=== PATIENT | female | born 1985 | race Caucasian/White ===

== ENCOUNTER 2025-06-30 17:52 | Emergency (ER) | payer BC, SELFPAY ==
[2025-06-30 18:01] VITALS: BP 181/97
--- NOTE | 2025-06-30 20:08 | ED.GENMED ---
History of Present Illness
General
Chief Complaint: Skin Problem
Time Seen by Provider: 06/30/25 20:08
History of Present Illness
History of Present Illness:
FOCUSED PAST MEDICAL HISTORY
- No significant past medical history
REVIEW OF OLD RECORDS
- No old records available for review in [facility]
Note:
CHIEF COMPLAINT(S)
New rash and persistent redness on the skin after recent history of poison rafael exposure.
HISTORY OF PRESENT ILLNESS
The patient is a 39-year-old female with a recent history of extensive poison rafael exposure starting on June 02. She completed a 21-day course of oral prednisone and a topical corticosteroid, Clobetasol, which ended last Sunday. A follow-up
with a link trainer teacher on Sunday revealed persistent redness and dryness on the leg, for which a sample of an additional topical medication was provided for irritation. No formal prescription was obtained for this.
Today, the patient presents with a new rash on the left side of her body, characterized by smaller, itchy bumps that are distinct from the original poison rafael rash. The patient reports that her right leg, originally impacted by poison rafael, is now
very red and has a new circular area with redness and hot to touch. The rash is described as uncomfortable, with no associated pain but significant itching. The redness has been persistent, while the new itchy area has been waxing and waning
throughout the day.
The patient has taken two doses of cetirizine today, as advised during the initial prednisone treatment. She denies any respiratory symptoms, trouble breathing, or sensation of throat tightness. The patient expressed concern over the persistent
redness and new rash, prompting today�s visit.
REVIEW OF SYSTEMS
- Skin: Raised crusted red lesions on lower extremity, faint erythema on the left torso and left lower extremity, itchy small bumps on the right side.
- Respiratory: No difficulty breathing, no respiratory distress.
- General: Feeling uncomfortable due to skin symptoms.
PHYSICAL EXAM
General: Alert, no acute distress.
Skin: Crusted, raised red lesions on the right lower extremity; faint erythema on the left torso and left lower extremity; questionable very faint petechial rash, warm to touch, not typical of cellulitis.
Head: Normocephalic, atraumatic.
Neck: Supple, trachea midline.
Eye, Ear, Nose, Mouth, and Throat: Oral mucosa moist.
Cardiovascular: Normal peripheral perfusion, No edema.
Respiratory: Respirations are non-labored; clear and equal breath sounds.
Gastrointestinal: Abdomen nondistended.
Back: Normal range of motion, Normal alignment.
Musculoskeletal: Normal range of motion, normal strength.
Neurological: Alert and oriented to person, place, time, and situation, no focal neurological deficit observed.
Psychiatric: Cooperative, appropriate mood & affect.
PROBLEM LIST
Acute:
- New rash with persistent erythema post-poison rafael exposure
- Possible allergic reaction
- Residual skin symptoms post-steroid treatment
PLAN
Consider obtaining basic blood work to check platelet counts and inflammatory markers.
Administer a dose of intravenous (IV) steroids.
Administer intravenous Benadryl and Pepcid to help manage symptoms.
Monitor the patient for any worsening of skin symptoms or new respiratory issues.
DIFFERENTIAL DIAGNOSIS
The differential diagnosis includes, in no particular order and is not limited to:
1. Contact dermatitis
2. Allergic reaction
3. Cellulitis
4. Urticaria
5. Atopic dermatitis
6. Drug eruption
7. Erythema multiforme
8. Viral exanthem
9. Psoriasis
10. Sepsis (unlikely due to lack of systemic symptoms)
LABS
- White count 5.7, hemoglobin 14.0, platelets 275, C-reactive protein is less than 5, chemistries unremarkable
UPDATE
-SUMMARY OF ENCOUNTER
The patient, a 39-year-old female with a recent history of poison rafael exposure, presented with a new rash on the right side of her body characterized by smaller, itchy bumps. She expressed concerns about persistent redness and new rash after
completing a 21-day course of oral prednisone and Clobetasol last Sunday. During the visit, lab tests including a complete blood count (CBC) and inflammatory marker (C-reactive protein) were performed, both returning normal results. The patients
symptoms were managed with intravenous (IV) administration of dexamethasone 10 mg and diphenhydramine (Benadryl), and a prescription for a steroid taper was discussed since she still had prednisone 20 mg available from her previous prescription. The
plan included a potential short taper over the next few weeks. Additionally, comfort measures for the rash were recommended, such as using a moisturizer or lotion.
DISPOSITION
The patient was discharged from the emergency department with follow-up instructions.
ASSESSMENT
Persistence of skin symptoms after initial treatment for poison rafael exposure, possible allergic reaction, and potential for a prolonged healing process given the patients history of recent steroid use and current skin condition. No evidence of
vasculitis or platelet disorder based on lab results.
EMERGENCY TREATMENTS ADMINISTERED
- Dexamethasone 10 mg IV
- Diphenhydramine (Benadryl) IV
REASSESSMENT
Patient�s rash and redness were reviewed, and the management plan, including the use of a steroid taper and antihistamines, was confirmed to provide symptom relief.
PLAN
- Continue with a steroid taper using patient�s current prednisone 20 mg stock.
- Use diphenhydramine or cetirizine as advised to manage itching.
- Consider adding famotidine (Pepcid) as an additional antihistamine.
- Employ moisturizers like Lubriderm or Aveeno for skin hydration.
- Follow up with a link trainer teacher for continued management and evaluation of the rash.
INDEPENDENT REVIEW OF LABS AND INTERPRETATION OF TESTS
My independent review of CBC is normal white blood cell count. My independent review of inflammatory markers (C-reactive protein) is as low as possible, suggesting no vasculitis or significant inflammatory process.
PATIENT EDUCATION AND COUNSELING
The patient was counseled on the management of her rash with continued use of moisturizing creams and the initiated steroid taper regimen. Instructions on antihistamine use and the differences between diphenhydramine and cetirizine were provided.
FOLLOW-UP INSTRUCTIONS
The patient was instructed to follow up with a link trainer teacher to discuss further management, evaluation of her symptoms, and to track the progression of her rash.
MEDICATION RECONCILIATION
1. Dexamethasone 10 mg IV administered.
2. Diphenhydramine (Benadryl) IV administered.
3. Prednisone 20 mg oral taper prescribed based on patients existing supply.
4. Alternative antihistamine options discussed, including cetirizine and famotidine (Pepcid).
MEDICAL DECISION MAKING
Number and Complexity of Problems Addressed: Chronic conditions affecting care included prior steroid use and recent poison rafael exposure. Differential diagnosis considered contact dermatitis, allergic reaction, cellulitis, urticaria, atopic
dermatitis, drug eruption, erythema multiforme, viral exanthem, psoriasis, and sepsis (unlikely).
Data:
Category 1:
- Independent interpretation of CBC and CRP as normal.
- Testing considered but not ordered based on current normal results.
Category 3:
- Management of patient�s symptoms discussed, and a plan for outpatient management was conceived with reliance on dermatology follow-up and ongoing patient symptom tracking.
Risk:
Prescription medication was prescribed due to ongoing management needs for the rash and considering a prior recent extensive use of steroids.
DIAGNOSIS
L23.7 Allergic contact dermatitis due to other agents
T78.40XA Allergy, unspecified, initial encounter
Phy Exam
Physical Exam
Physical Exam:
See HPI
Course
Orders/Labs/Results
Orders:
Orders
06/30/25 20:15
Dexamethasone Sod Phosphate [Decadron] 10 mg IV NOW STA
Diphenhydramine [Benadryl] 25 mg IV NOW STA
Famotidine [Pepcid] 20 mg IV NOW STA
06/30/25 20:29
Basic Metabolic Panel Urgent
CRP [C-Reactive Protein] Urgent
Complete Blood Count/With Diff Urgent
Abnormal Lab Results
06/30/25
20:29
MCH 31.4 H pg
(27.0-31.0)
MCHC 32.1 L g/dL
(33.0-37.0)
Monocytes % 11.2 H %
(1.7-9.3)
BUN 21 H mg/dl
(7-17)
06/30/25 20:29
06/30/25 20:29
Vital Signs
Initial and Last Documented VS:
Initial Vital Signs
Temp Pulse Resp BP Pulse Ox
36.8 C 84 20 181/97 100
06/30/25 18:01 06/30/25 18:01 06/30/25 18:01 06/30/25 18:01 06/30/25 18:01
Last Documented Vital Signs
Temp Pulse Resp BP Pulse Ox
36.8 C 87 19 149/87 100
06/30/25 18:01 06/30/25 20:57 06/30/25 20:57 06/30/25 20:57 06/30/25 20:57
*Pulse Oximetry
SaO2: 100
Oxygen Mode of Delivery: Room air
Patient hypoxic: no
*Critical Care Note
Total Time (30-74mins, 75-104mins- exclusive of procedures): Not Applicable
ED Attending Note
-
Portions of this chart may have been created with voice recognition software.� Occasional wrong word or��sound alike� substitutions may have occurred due to the inherent limitations of voice recognition software.
Discharge Plan
Departure
Patient Disposition: Home (Routine Discharge)
Date of Disposition: 06/30/25
Time of Disposition: 21:40
Patient with high blood pressure during this ER visit?: Yes
Discharge Problem:
Allergic reaction
Instructions: Skin Rash (DC)
Referrals:
Jeni Monzon NP [Family Provider, Family Practice]
Activity Restrictions/Additional Instructions:
You could consider resuming a course of steroids as you already have the prednisone as we have discussed. The inflammatory marker called C-reactive protein is less than 5 (normal), chemistry levels are normal, white count, hemoglobin, and platelet
counts are all normal as well. Follow-up your manager park tomorrow. We gave you IV dexamethasone, IV Benadryl, and IV Pepcid. You could also take [id number] Benadryl and Pepcid as well.
Interventions
Interventions:
*Risk Screen - Suicide Last Done: 06/30/25 18:01
*Neglect/Abuse Screening Last Done: 06/30/25 18:01
Discharge Date and Time
Print Language: GERMAN
[2025-06-30] MEDS: PEPCID 20 MG IV (20:32)
[2025-06-30] MEDS: BENADRYL 25 MG IV (20:32)
[2025-06-30] MEDS: DECADRON 10 MG IV (20:33)
[2025-06-30 20:45] LABS: Hematocrit 43.6 % (37.0-47.0); Hemoglobin 14.0 g/dL (12.0-16.0); Mean Corp Hgb Conc. 32.1 g/dL (33.0-37.0); Mean Corpuscular Volume 97.8 fL (81.0-99.0); Nucleated Red Blood Cells % 0 %; Platelet Count 275 10^3/uL (130-400); Red Cell Dist. Width 12.6 % (11.5-14.5)
[2025-06-30 20:56] LABS: Blood Urea Nitrogen 21 mg/dl (7-17); Calcium 10.0 mg/dl (8.4-10.2); Carbon Dioxide 26 mmol/L (22-30); Chloride 103 mmol/L (98-107); Glucose 80 mg/dl (70-99); Potassium 3.5 mmol/L (3.5-5.1); Sodium 138 mmol/L (135-145); eGFR > 60.00
[2025-06-30 20:57] VITALS: BP 149/87
[2025-06-30 20:59] LABS: C-Reactive Protein < 5.00 mg/L (0.0-10.00)
== END 2025-06-30 21:54 | disposition home or self-care (01) ==
LOC: EMR 17:52
PROVIDERS: EMERGENCY PHYSICIAN Emergency Medicine; FAMILY PHYSICIAN Nurse Practitioner Family
DX: T78.40XA Allergy, unspecified, initial encounter (principal); X58.XXXA Exposure to other specified factors, initial encounter; R03.0 Elevated blood-pressure reading, without diagnosis of hypertension
CPT/HCPCS: 99284; 96374; 96375 ×2; 80048; 85025; 86140